=== PATIENT | female | born 1990 | race Caucasian/White ===

== ENCOUNTER → 2023-03-07 | Outpatient (CLI) | payer OTHER ==
--- NOTE | 2023-03-07 15:36 | Diagnostic Imaging Report ---
INDICATION: Gestational diabetes. TECHNIQUE: Multiple real-time grayscale images were obtained over the gravid uterus. COMPARISON: None FINDINGS: There is a single live fetus in a cephalic presentation. heart rate was recorded at 143 bpm. Placenta is posterior. No previa is detected. The amniotic fluid index is 13.6 cm. Cervical length is 4.9 cm. Overall quality of the study is somewhat limited due to patient body habitus. No gross abnormality is detected. Biometrical measurements are as follows: Biparietal 8.15 cm, age 32 weeks 6 days. Head circumference 30.65 cm, age 34 weeks 2 days. Abdominal circumference 30.12 cm, age 34 weeks 1 days. Femur length 6.74 cm, age 34 weeks 5 days. Sonographic estimate age: 34 weeks 0 days. Sonographic estimated date of delivery: 04/18/2023. Estimated Weight: 2354 gm (+/- 344 gm). LMP percentile: 79%. heart rate: 143 beats per minute. number: 1 of 1. IMPRESSION: Single live IUP 34 weeks 0 days gestational age. Estimated of confinement sonographically is 04/18/2023. Dictated by: Dictated on workstation # [id number]
== END ==
LOC: RAD 13:42
PROVIDERS: ATTEND Obstetrics & Gynecology
DX: O24.414 Gestational diabetes mellitus in pregnancy, insulin controlled (principal); Z3A.34 34 weeks gestation of pregnancy
CPT/HCPCS: 76805

== ENCOUNTER → 2023-04-03 | Outpatient (CLI) | payer OTHER ==
--- NOTE | 2023-04-03 15:45 | Diagnostic Imaging Report ---
INDICATION: Gestational diabetes, evaluate growth. TECHNIQUE: Multiple real-time grayscale images were obtained over the gravid uterus. COMPARISON: 03/07/2023. FINDINGS: There is a single live fetus in a cephalic presentation. heart rate was recorded at 146 BPM. Placenta is posterior. No previa is detected. Cervical length is 5.2 cm. growth parameters appear to be appropriate. Biometrical measurements are as follows: Biparietal 8.88 cm, age 36 weeks 0 days. Head circumference 34.53 cm, age 40 weeks 0 days. Abdominal circumference 35.02 cm, age 39 weeks 0 days. Femur length 7.64 cm, age 39 weeks 1 days. Sonographic estimate age: 38 weeks 4 days. Sonographic estimated date of delivery: 04/13/2023. Estimated Weight: 3562 gm (+/- 521 gm). LMP percentile: 98%. heart rate: 146 beats per minute. number: 1 of 1. IMPRESSION: Single live IUP of approximately 38-39 weeks gestational age showing normal interval growth when compared with prior examination from 03/07/2023. Dictated by: Dictated on workstation # [id number]
== END ==
LOC: RAD 13:54
PROVIDERS: ATTEND Obstetrics & Gynecology
DX: O24.419 Gestational diabetes mellitus in pregnancy, unspecified control (principal); Z3A.38 38 weeks gestation of pregnancy
CPT/HCPCS: 76805

== ENCOUNTER 2023-04-15 06:30 | Inpatient (IN) | payer OTHER, MEDICAID ==
[2023-04-15] VITALS (52 sets, daily range): BP systolic 93–173; BP diastolic 51–89
[~2023-04-15] VITALS: Ht 170.2 cm; Wt 150.7 kg
--- NOTE | 2023-04-15 07:44 | History & Physical-OB ---
OB - Chief Complaint & HPI Date/Time Date of Admission: Date of Admission: Apr 15, 2023 at 06:54 Date seen by a Provider: Apr 15, 2023 Time Seen by a Provider: 07:25 Chief Complaint/History OB-Reason for Admission/Chief: Induction of Labor Hx : 6 Hx Para: 4 Expected Date of Delivery: Apr 26, 2023 Gestational Age in Weeks: 38 Gestational Age in Days: 3 Indication for induction: medical complication (GDMA2) Indication for : macrosomia Admission Nurse Assessment Rev: Yes History of Labs O+ GBS neg HIV neg Hep B/C neg RPR neg R-I Other This 32yo presents to L&D @38w3 for IOL d/t GDMA2 on insulin and metformin. She states that she has occasional CTXs but denies LOF VB. GBS neg. Allergies and Home Medications Allergies Coded Allergies: No Known Drug Allergies (Unverified , 04/15/23) Patient Home Medication List Home Medication List Reviewed: Yes OB - History Hx of Present Care: Yes Ultrasounds: Normal mid trimester US Obstetrical Complications: Gestational Diabetes Medical Complications: None Information Induced Hypertension: No Maternal Gestational Diabetes: Yes Hemorrhage: No Obstetrical History Hx : 6 Hx Para: 4 Hx # Term Pregnancies: 4 Hx Maternal Gestational Diabet: Yes Risk Variables Obstetrical Risk Variables: POA BMI >= 40, POA Gestational Diabetes Patient Past Medical History GDMA2 obesity Social History/Family History Alcohol Use: Denies Use Smoking Cessation: Never smoker Immunizations Influenza Vaccine Up-to-Date: Yes; Up-to-Date OB - Admission Exam Physical Exam HEENT: NCAT Heart: Rhythm Normal Lungs: Clear Abdomen: Gravid Extremities: Normal Reflexes: Normal Cervical Dilatation: 2cm Effacement: 50% Station: -3 Membranes: Intact Heart Rate: 140's Accelerations: Accelerations Present Decelerations: No Decelerations Short Term Variability: Present Oven Dauber Variability: Average (6-25) Contractions on Admission: 6-10 Minutes Apart Intensity: Mild Ross Scoring Tool (Modified) Dilation (cm): 1-2cm (1) Effacement (%): 51-79% (2) Descent/Station: -3 (0) Cervix Consistency: Soft (2) Cervix Position: Middle/Mid-Position (1) Add 1 point for: Each previous vaginal delivery (1) Ross Score: 10 OB - Assessment/Plan/Diagnosis Assessment Assessment: induction of labor Admission Dx IUP @38w3d GDMA2 Obesity Admit for IOL Admission Status: Inpatient Order (span 2 midnights) Reason for Inpatient Admission: IUP @38w3d GDMA2 Obesity Admit for IOL Plan Plan: Induction Induction Method: per Pitocin Protocol VERNON WOODWARD DO Apr 15, 2023 07:44
[2023-04-15] MEDS ORDERED: MINERAL OIL 30 ML UDC TOP PRN (08:15)
[2023-04-15] MEDS ORDERED: LIDOCAINE 2% w/EPI 1:200,000 20 ML VIAL INJ PRN (08:15)
[2023-04-15] MEDS ORDERED: LACTATED RINGERS 1,000 ML 500 ML IV PRN (08:15)
[2023-04-15 08:16] LABS: BASOPHILS # (AUTO) 0.1 10^3/uL (0.0-0.1); BASOPHILS % (AUTO) 1 % (0-10); EOSINOPHILS # (AUTO) 0.2 10^3/uL (0.0-0.3); EOSINOPHILS % (AUTO) 3 % (0-10); HEMATOCRIT 37 % (35-52); HEMOGLOBIN 11.6 g/dL (11.5-16.0); LYMPHOCYTES # (AUTO) 1.7 10^3/uL (1.0-4.0); LYMPHOCYTES % (AUTO) 23 % (12-44); MEAN CORPUSCULAR HEMOGLOBIN 26 pg (25-34); MEAN CORPUSCULAR HGB CONC 31 g/dL (32-36); MEAN CORPUSCULAR VOLUME 84 fL (80-99); MEAN PLATELET VOLUME 10.5 fL (9.0-12.2); MONOCYTES # (AUTO) 0.6 10^3/uL (0.0-1.0); MONOCYTES % (AUTO) 8 % (0-12); NEUTROPHILS # (AUTO) 4.7 10^3/uL (1.8-7.8); NEUTROPHILS % (AUTO) 65 % (42-75); PLATELET COUNT 266 10^3/uL (130-400); WHITE BLOOD COUNT 7.3 10^3/uL (4.3-11.0)
[2023-04-15] MEDS ORDERED: LACTATED RINGERS 1,000 ML 1,000 ML IV SCH ×2 (08:30→19:45)
[2023-04-15] MEDS ORDERED: OXYTOCIN DRIP PRE-MIX 500 ML IV SCH (08:45)
[2023-04-15 09:06] LABS: BILIRUBIN,URINE NEGATIVE (NEGATIVE); CLARITY,URINE CLEAR; COLOR,URINE YELLOW; GLUCOSE, URINE (UA) NEGATIVE (NEGATIVE); KETONES,URINE NEGATIVE (NEGATIVE); NITRITE,URINE NEGATIVE (NEGATIVE); PROTEIN,URINE NEGATIVE (NEGATIVE)
[2023-04-15 09:08] LABS: BACTERIA,URINE FEW /HPF; LEUKOCYTE ESTERASE ,URINE TRACE (NEGATIVE)
[2023-04-15] MEDS ORDERED: fentaNYL 2 mcg/ml BUPIVA 0.125 100 ML ONE ×2 (10:01→18:53)
[2023-04-15] MEDS ORDERED: BUPIVACAINE 0.25% 10 ML VIAL ONE (10:12)
[2023-04-15] MEDS ORDERED: fentaNYL INJECTION 100 MCG/2 ML VIAL ONE (10:12)
[2023-04-15] MEDS: fentaNYL 2 mcg/ml BUPIVA 0.125 100 ML EPI SCH ×2 (10:28→19:09)
[2023-04-15] MEDS: D5 LR 1,000 ML IV SOLN 1,000 ML IV SCH ×2 (13:14→21:32)
[2023-04-15] MEDS: CATHETER FLUSH 10 ML SYR IV SCH ×2 (17:13→22:00)
[2023-04-15] MEDS ORDERED: diphenhydrAMINE INJ 50 MG/ML VIAL IV PRN (19:45)
[2023-04-15] MEDS ORDERED: METOCLOPRAMIDE INJ 10 MG/2 ML IV PRN (19:45)
[2023-04-15] MEDS ORDERED: ONDANSETRON INJECTION 4 MG/2 ML (SDV) IV PRN (19:45)
[2023-04-15] MEDS ORDERED: NALOXONE 0.4 MG/ML 1 ML VIAL IV PRN ×2 (19:45)
[2023-04-16] VITALS (17 sets, daily range): BP systolic 117–152; BP diastolic 57–76
--- NOTE | 2023-04-16 01:27 | OB Labor & Delivery Record ---
L&D History Date of Service Date of Service: Apr 16, 2023 History Expected Date of Delivery: Apr 26, 2023 Gestational Age in Weeks: 38 Hx : 6 Hx Para: 4 Risk Variables Obstetrical Risk Variables: POA BMI >= 40, POA Gestational Diabetes Complications Events: Gestational Diabetes Operative Indications (Cesarea: N/A-Vaginal Delivery Intrapartal Events: None L&D Stage1 Stage One Onset of Labor - Date: Apr 16, 2023 Onset of Labor - Time: 07:00 Monitors and Tracing Monitor Mode: External Heart Rate: 135 Monitor Accelerations: Non-Uniform Monitor Decelerations: Variable Station: -2 Care Home Variability: Average (6-10) Short Term Variability: Present Presentation: Vertex Vital Signs VS - Last 72 Hours, by Label 04/15/23 04/15/23 04/15/23 04/15/23 07:26 09:30 09:45 10:00 Temp 36.2 Pulse 72 74 74 76 Resp 20 20 20 20 B/P (MAP) 138/82 (100) 148/87 (107) 151/88 (109) Pulse Ox 98 O2 Delivery Room Air Room Air Room Air Room Air 04/15/23 04/15/23 04/15/23 04/15/23 10:15 10:30 10:36 10:45 Pulse 79 93 64 75 Resp 20 22 20 20 B/P (MAP) 162/89 (113) 173/80 (111) 140/63 (88) 107/58 (74) Pulse Ox 93 96 O2 Delivery Room Air Room Air Room Air Room Air 04/15/23 04/15/23 04/15/23 04/15/23 11:00 11:15 11:30 11:45 Pulse 76 83 74 76 Resp 20 20 20 20 B/P (MAP) 110/56 (74) 115/59 (77) 96/55 (69) Pulse Ox 96 100 99 99 O2 Delivery Room Air Room Air Room Air Room Air 04/15/23 04/15/23 04/15/23 04/15/23 12:00 12:15 12:30 12:45 Pulse 75 83 86 83 Resp 20 20 20 20 B/P (MAP) 114/55 (74) 104/56 (72) 99/51 (67) Pulse Ox 99 97 98 98 O2 Delivery Room Air Room Air Room Air Room Air 04/15/23 04/15/23 04/15/23 04/15/23 13:00 13:15 13:30 13:45 Pulse 75 78 79 83 Resp 20 20 20 20 B/P (MAP) 105/58 (74) 121/63 (82) 118/71 (87) Pulse Ox 98 99 98 98 O2 Delivery Room Air Room Air Room Air Room Air 04/15/23 04/15/23 04/15/23 04/15/23 14:00 14:15 14:30 14:45 Pulse 88 88 78 97 Resp 20 20 20 20 B/P (MAP) 124/71 (88) Pulse Ox 98 97 96 100 O2 Delivery Room Air Room Air Room Air Room Air 04/15/23 04/15/23 04/15/23 04/15/23 15:00 15:15 15:30 15:45 Pulse 78 86 86 81 Resp 20 20 20 20 B/P (MAP) 122/71 (88) 119/66 (83) 106/55 (72) Pulse Ox 100 100 99 99 O2 Delivery Room Air Room Air Room Air Room Air 04/15/23 04/15/23 04/15/23 04/15/23 16:00 16:15 16:30 16:45 Pulse 81 89 73 105 Resp 20 20 20 20 B/P (MAP) 108/59 (75) 109/61 (77) 107/58 (74) 108/61 (77) Pulse Ox 99 99 99 99 O2 Delivery Room Air Room Air Room Air Room Air 04/15/23 04/15/23 04/15/23 04/15/23 17:00 17:15 17:30 17:45 Pulse 85 88 109 85 Resp 20 20 20 20 B/P (MAP) 123/66 (85) 118/66 (83) 126/67 (86) 146/71 (96) Pulse Ox 99 99 99 99 O2 Delivery Room Air Room Air Room Air Room Air 04/15/23 04/15/23 04/15/23 04/15/23 18:00 18:15 18:30 18:45 Pulse 84 75 98 74 Resp 20 20 20 20 B/P (MAP) 131/72 (91) 128/72 (90) 135/83 (100) 134/76 (95) Pulse Ox 99 99 99 99 O2 Delivery Room Air Room Air Room Air Room Air 04/15/23 04/15/23 04/15/23 04/15/23 19:00 19:30 19:45 20:00 Temp 36.0 Pulse 75 93 77 86 Resp 20 18 18 20 B/P (MAP) 127/72 (90) 128/74 (92) 132/76 (94) 142/81 (101) Pulse Ox 99 O2 Delivery Room Air Room Air Room Air Room Air 04/15/23 04/15/23 04/15/23 04/15/23 20:15 20:30 20:45 21:00 Temp 36.5 Pulse 82 76 82 83 Resp 20 18 20 20 B/P (MAP) 133/70 (91) 119/64 (82) 109/59 (76) 112/58 (76) O2 Delivery Room Air Room Air Room Air Room Air 04/15/23 04/15/23 04/15/23 04/15/23 21:15 21:30 21:45 22:00 Temp 36.6 Pulse 72 72 72 90 Resp 18 18 18 18 B/P (MAP) 134/69 (90) 130/73 (92) 130/73 (92) 119/81 (94) O2 Delivery Room Air Room Air Room Air Room Air 04/15/23 04/15/23 04/15/23 04/15/23 22:15 22:30 22:45 23:00 Temp 36.8 Pulse 77 76 75 75 Resp 20 20 20 20 B/P (MAP) 131/76 (94) 118/74 (89) 133/80 (97) 114/61 (78) O2 Delivery Room Air Room Air Room Air Room Air 04/15/23 04/15/23 04/15/23 04/16/23 23:15 23:30 23:45 00:00 Temp 36.8 Pulse 72 73 70 80 Resp 20 20 18 18 B/P (MAP) 115/57 (76) 93/51 (65) 116/55 (75) 117/60 (79) O2 Delivery Room Air Room Air Room Air Room Air Rupture of Membranes Spontaneous Ruture of Membrane: No Amniotic Membrane Rupture Time: 1724 Induction/Anesthesia Epidural Cath Placement - Time: 1023 L&D Stage2 Stage Two Stage II Date: Apr 16, 2023 Stage II Time: 00:50 Monitors and Tracing Monitor Mode: External Heart Rate: 135 Monitor Accelerations: Non-Uniform Monitor Decelerations: None Senior Fund Accountant Variability: Average (6-10) Short Term Variability: Present Position: Left Occiput Anterior Presentation: Vertex Cord Descript/Complications Cord Vessel Description: 3 Vessels Delivery Type Infant Delivery Method: Spontaneous Vaginal Anterior Shoulder: Right Episiotomy/Perineal Laceration Laceraction(s)/Extensions: Yes Episiotomy Description: Perineal Extension/lac, 1st degree Condition of Delivery Delivery Date & Time: 04/16/23 0101 1 minute Comment: 8 5 minute Comment: 9 Notes Liveborn male at 0101 on 04/16/2023 weight 8 pounds 5 ounces Condition of Condition of : Living Exam: No Observed Abnormalities Resuscitation Resuscitation: N/A - Spontaneous Resp L&D Stage3 Stage Three Stage III Date: Apr 16, 2023 Stage III Time: 01:06 Pictocin Pitocin Administration mu/min: 34 Pitocin ml/hr: 34 Pitocin Administration Comment: pitocin increased at 2345 Placenta Delivery Placenta Delivery: Spontaneous Delivery Summary Summary Estimated blood loss (mL): 100 Attending at delivery: Justyna Woodward DO Condition of Delivery Examined: Cervix Examined Post Hemorrhage: No Condition of Mother Stable Condition of Infant (s) Stable VERNON WOODWARD DO Apr 16, 2023 01:27
[2023-04-16] MEDS ORDERED: PNV1TABL67 PO (01:29)
[2023-04-16] MEDS ORDERED: IBUP-1780 PO (01:29)
[2023-04-16] MEDS ORDERED: FERR325T24 PO (01:29)
[2023-04-16] MEDS ORDERED: DIBUCAINE 1% OINTMENT 28 GM TUBE TOP PRN (01:30)
[2023-04-16] MEDS ORDERED: Tetanus/Diphtheria/Pertussis (Acell) ADULT Vaccine 0.5 ML IM ONE (01:30)
[2023-04-16] MEDS ORDERED: MEASLES, MUMPS, RUBELLA VACCINE (MMR) SQ ONE (01:30)
[2023-04-16] MEDS ORDERED: NALOXONE 0.4 MG/ML 1 ML VIAL IV PRN (01:30)
[2023-04-16] MEDS ORDERED: WITCH HAZEL(TUCKS) 40 EA JAR TOP PRN (01:30)
[2023-04-16] MEDS ORDERED: BENZOCAINE/MENTHOL (DERMOPLAST) 56 ML CAN TP PRN (01:30)
[2023-04-16] MEDS ORDERED: OXYTOCIN DRIP PRE-MIX 500 ML IV SCH (01:30)
--- NOTE | 2023-04-16 01:31 | Discharge Inst-Simple/Standard ---
Discharge Inst-Standard Reconcile Patient Problems Problems Reviewed?: Yes Discharge Medications New, Converted or Re-Newed RX: Transmitted to Pharmacy Patient Instructions/Follow Up Plan of Care/Instructions/FU: f/u in 2-3wks Nothing in vagina (no sex, tampons or douches) Call if increase pain, bleeding or Temp over 101F Activity as Tolerated: Yes Discharge Diet: Regular Diet VERNON WOODWARD DO Apr 16, 2023 01:30
[2023-04-16] MEDS: IBUPROFEN 800 MG TABLET PO SCH ×3 (01:49→17:44)
[2023-04-16] MEDS: ACETAMINOPHEN 500 MG TABLET PO SCH ×4 (01:50→21:58)
[2023-04-16] MEDS ORDERED: CATHETER FLUSH 10 ML SYR IV SCH (06:00)
[2023-04-16] MEDS: FERROUS SULFATE 325 MG (IRON) TABLET PO SCH (09:08)
[2023-04-16] MEDS: DOCUSATE SODIUM 100 MG CAPSULE PO SCH ×2 (09:08→20:48)
[2023-04-16] MEDS: PRENATAL VITAMIN TABLET PO SCH (09:13)
[2023-04-17] MEDS: IBUPROFEN 800 MG TABLET PO SCH ×2 (02:05→10:32)
[2023-04-17 02:08] VITALS: BP 139/82
[2023-04-17] MEDS: ACETAMINOPHEN 500 MG TABLET PO SCH ×2 (04:09→09:08)
[2023-04-17 06:05] LABS: BASOPHILS # (AUTO) 0.1 10^3/uL (0.0-0.1); BASOPHILS % (AUTO) 1 % (0-10); EOSINOPHILS # (AUTO) 0.2 10^3/uL (0.0-0.3); EOSINOPHILS % (AUTO) 3 % (0-10); HEMATOCRIT 35 % (35-52); LYMPHOCYTES # (AUTO) 2.3 10^3/uL (1.0-4.0); LYMPHOCYTES % (AUTO) 28 % (12-44); MEAN CORPUSCULAR HEMOGLOBIN 27 pg (25-34); MEAN CORPUSCULAR HGB CONC 31 g/dL (32-36); MEAN CORPUSCULAR VOLUME 85 fL (80-99); MEAN PLATELET VOLUME 10.4 fL (9.0-12.2); MONOCYTES # (AUTO) 0.6 10^3/uL (0.0-1.0); MONOCYTES % (AUTO) 7 % (0-12); NEUTROPHILS % (AUTO) 61 % (42-75); PLATELET COUNT 245 10^3/uL (130-400); WHITE BLOOD COUNT 8.2 10^3/uL (4.3-11.0)
[2023-04-17 09:00] VITALS: BP 128/57
--- NOTE | 2023-04-17 09:05 | Postpartum Progress Note ---
Note Note Day # 1 Subjective: Patient is day #1 status post vaginal delivery doing well no concerns. Breast-feeding is going well. Blood sugars have all been normal. Her pain is well controlled. Objective: VSS AF Physical Exam: General - Alert and oriented, no apparent distress Abdomen - Soft, appropriately tender to palpation, non-distended, fundus firm at umbilicus Lochia minimal Extremities - no edema, negative Chele's bilaterally Assessment: [] post- day # 1 status post spontaneous vaginal delivery Recovering well, hemodynamically stable Plan: Routine care. Encourage breast feeding. Encourage ambulation. Ferrous sulfate supplementation. Plan for discharge [] Vitals - Labs Vital Signs - I&O Vital Signs Date Time Temp Pulse Resp B/P (MAP) Pulse Ox O2 Delivery O2 Flow Rate FiO2 04/17/23 02:08 36.2 79 18 139/82 (101) 98 Room Air 04/16/23 20:49 36.1 77 18 121/62 (81) 98 Room Air 04/16/23 17:42 36.5 81 18 129/75 (93) 98 Room Air 04/16/23 13:35 36.5 86 18 125/73 (90) 99 Room Air Labs Laboratory Tests 04/16/23 10:33: Glucometer 95 04/16/23 20:59: Glucometer 112H 04/17/23 05:30: White Blood Count 8.2, Red Blood Count 4.15, Hemoglobin 11.0L, Hematocrit 35, M shabbir Corpuscular Volume 85, Mean Corpuscular Hemoglobin 27, Mean Corpuscular Hemoglobin Concent 31L, Red Cell Distribution Width 15.9H, Platelet Count 245, Mean Platelet Volume 10.4, Immature Granulocyte % (Auto) 1, Neutrophils (%) (Auto) 61, Lymphocytes (%) (Auto) 28, Monocytes (%) (Auto) 7, Eosinophils (%) (Auto) 3, Basophils (%) (Auto) 1, Neutrophils # (Auto) 5.0, Lymphocytes # (Auto) 2.3, Monocytes # (Auto) 0.6, Eosinophils # (Auto) 0.2, Basophils # (Auto) 0.1, Immature Granulocyte # (Auto) 0.0 Microbiology 04/15/23 Urine Culture - Final, Complete Gram Pos Mixed Bacterial Gillian VERNON WOODWARD DO Apr 17, 2023 09:04
[2023-04-17] MEDS: PRENATAL VITAMIN TABLET PO SCH (09:06)
[2023-04-17] MEDS: FERROUS SULFATE 325 MG (IRON) TABLET PO SCH (09:06)
[2023-04-17] MEDS: DOCUSATE SODIUM 100 MG CAPSULE PO SCH (09:09)
[2023-04-17 11:05] VITALS: BP 128/57
== END 2023-04-17 11:05 | disposition home or self-care (01) | DRG 807 ==
LOC: LDRP 06:54
PROVIDERS: ADMIT Obstetrics & Gynecology; ATTEND Obstetrics & Gynecology
PROC: 3E033VJ Introduction of Other Hormone into Peripheral Vein, Percutaneous Approach (ICD-10-PCS; 2023-04-15)
PROC: 10E0XZZ Delivery of Products of Conception, External Approach (ICD-10-PCS; principal; 2023-04-16)
DX: O36.63X0 Maternal care for excessive fetal growth, third trimester, not applicable or unspecified (principal); Z37.0 Single live birth; Z3A.38 38 weeks gestation of pregnancy; O24.424 Gestational diabetes mellitus in childbirth, insulin controlled; O99.214 Obesity complicating childbirth; O70.0 First degree perineal laceration during delivery
CPT/HCPCS: 36415; 81000; 82947; 85025; 86850; 86900; 86901; 87088